=== PATIENT | male | born 1960 | race Caucasian/White ===

== ENCOUNTER 2020-05-10 21:29 | Inpatient (IN) ==
[2020-05-10] MEDS ORDERED: NORMAL SALINE 1,000 ML IV ONE (21:45)
[2020-05-10] MEDS ORDERED: HYDROmorphone HCL 1 MG/ML DISP.SYRIN IV ONE (21:50)
[2020-05-10] MEDS ORDERED: ACETAMINOPHEN 500 MG TABLET PO ONE (21:56)
--- NOTE | 2020-05-10 21:58 | ERNOTE ---
ER Male HPI Date of Service: 05/10/20 Stated Complaint: infection ER Male: other Time Seen by Provider: 05/10/20 21:31 Source: patient Exam Limitations: no limitations - Right flank pain Immunizations: IMMUNIZATION HX Immunizations Up to Date Yes History of Influenza Vaccine Yes Hx Pneumococcal Vaccination No Allergies/Adverse Reactions: Allergies gabapentin Adverse Reaction (Verified 05/10/20 21:39) Home Medications: HOME MEDICATIONS Lisinopril [Zestril] 10 mg PO DAILY 02/09/14 [Last Taken Unknown] Pravastatin Sodium [Pravachol] 20 mg PO HS 02/09/14 [Last Taken Unknown] metFORMIN HCL [Glucophage] 850 mg PO TID 02/09/14 [Last Taken Unknown] Potassium Citrate [Urocit-K] 2 tab PO BID #0 tablet.er 09/06/14 [Last Taken Unknown] Tamsulosin HCl [Flomax] 0.4 mg PO DAILY #7 cap 03/13/18 [Last Taken Unknown] HYDROcodone/ACETAMINOPHEN [Hydrocodon-Acetaminophn 10-325] 1 ea PO Q6H 05/08/20 [Last Taken Unknown] Sulfamethoxazole/Trimethoprim [Bactrim Ds] 1 tab PO BID 14 Days #7 tab 05/08/20 [Last Taken Unknown] glipiZIDE [Glipizide] 5 mg PO DAILY 05/08/20 [Last Taken Unknown] - Pain Score Pain Score #1 Pain Score: 7 - History of Present Illness Narrative: 59-year-old male diabetic seen 2 days ago here in the emergency room diagnosed with a passed kidney stone urinary tract infection since being discharged to home has been complaining of fever chills getting worse in the last 24 hours still having extreme pain in the right flank with multiple episodes of nausea and vomiting pain radiates into the groin as if he had another stone he was placed on Bactrim for the urinary tract infection and preliminary culture showed Proteus mirabilis patient states that his sugars have been running extremely h igh Date (Duration): 05/10/20 Time (Timing): 21:53 Timing: Present: getting worse Quality: Present: severe Onset Location: Present: RLQ, right flank Radiation: Present: RLQ, groin Activities at Onset: Present: none Prior Abdominal Problems: Present: other - Kidney stone Modifying Factors - (Improves): Present: analgesics Modifying Factors - (Worsens): Present: movement Associated Symptoms: Present: fever/chills, diaphoresis, nausea, vomiting, abdominal pain Prior Treatment: Present: recently seen, treated by physician Review of Systems - Review of Systems Constitutional: Present: no symptoms reported, recent illness, fever, chills, diaphoresis EYE: Present: no symptoms reported ENT: Present: no symptoms reported Respiratory: Present: no symptoms reported Cardiology: Present: no symptoms reported Gastrointestinal/Abdominal: Present: no symptoms reported, nausea, vomiting Genitourinary: Present: frequency, pain Musculoskeletal: Present: no symptoms reported Skin: Present: no symptoms reported Neurological: Present: no symptoms reported All Other Systems: All systems neg except as marked Medical History (Last Reviewed 05/10/20 @ 21:54 by Joce Lemus MD) Abnormal liver enzymes Diabetes 1.5, managed as type 2 Hypercholesteremia Hypertension Kidney stone Obesity Obstructive sleep apnea Surgical History: Surgical History (Last Reviewed 05/10/20 @ 21:54 by Joce Lemus MD) History of colonoscopy History of lithotripsy Hx of appendectomy Family History: Family History (Last Reviewed 05/10/20 @ 23:19 by Dayanara Lovett RN) Other No pertinent family history Social History: (Last Reviewed 05/10/20 @ 23:19 by Dayanara Lovett RN) Social History: adopted: No foster care: No custodial: No Marital status: lives independently: Yes current occupational status: employed Tobacco: Smoking Status: Never smoker Alcohol: alcohol intake: never Substance Use: substance use type: does not use Physical Exam - Physical Exam General Appearance: Present: wd/wn, severe distress, obese Head Exam: Present: normal inspection Eye Exam: Normal inspection: bilateral Ears, Nose, Throat: Present: normal ENT inspection, dry mucous membranes Neck: Present: normal inspection Respiratory: Present: no respiratory distress Cardiovascular/Chest: Present: tachycardia Gastrointestinal/Abdominal: Present: nontender, nondistended, soft, abnormal bowel sounds Male Genitals Exam: Present: normal genitalia Back Exam: Present: normal inspection Extremity Exam: Present: normal inspection Neurological Exam: Present: alert, oriented Skin Exam: Present: diaphoresis Lymphatic Exam: Present: no adenopathy Progress - Results and Orders Patient's Lab Results:: I have reviewed the patient's lab results. Results and Orders: Laboratory Tests 05/10/20 05/10/20 05/10/20 21:50 21:50 21:50 WBC 18.9 H D RBC 5.23 Hgb 15.1 Hct 46.1 MCV 88.1 MCH 28.9 MCHC 32.8 RDW 13.0 Plt Count 256 Neutrophils % (Manual) 86 H Band Neuts % (Manual) 8 H Lymphocytes % (Manual) 5 L Monocytes % (Manual) 1 Sodium 131 L Plasma Sodium 133 Potassium 4.5 Chloride 93 L Carbon Dioxide 22.7 L Anion Gap 19.8 H BUN 39 H Creatinine 2.31 H D Est GFR (Non-Af Amer) 31 L D BUN/Creatinine Ratio 16.9 Random Glucose 217 H Lactic Acid, Venous 3.6 H* Calcium 9.4 Calcium Adj for Albumin 9.6 Total Bilirubin 1.1 AST 32 ALT 35 Alkaline Phosphatase 162 Troponin I Less than 0.017 Total Protein 8.9 H Albumin 3.3 L Urine Color Urine Appearance Urine pH Ur Specific [place] Urine Protein Urine Glucose (UA) Urine Ketones Urine Blood Urine Nitrate Urine Bilirubin Urine Urobilinogen Ur Leukocyte Esterase Urine RBC Urine WBC Ur Epithelial Cells Urine Bacteria Urine Culture Comments 05/10/20 22:05 WBC RBC Hgb Hct MCV MCH MCHC RDW Plt Count Neutrophils % (Manual) Band Neuts % (Manual) Lymphocytes % (Manual) Monocytes % (Manual) Sodium Plasma Sodium Potassium Chloride Carbon Dioxide Anion Gap BUN Creatinine Est GFR (Non-Af Amer) BUN/Creatinine Ratio Random Glucose Lactic Acid, Venous Calcium Calcium Adj for Albumin Total Bilirubin AST ALT Alkaline Phosphatase Troponin I Total Protein Albumin Urine Color Yellow Urine Appearance Clear Urine pH 5.5 Ur Specific [place] 1.025 Urine Protein 30 H Urine Glucose (UA) >=1000 H Urine Ketones 15 Urine Blood 50 H Urine Nitrate Negative Urine Bilirubin 1 H Urine Urobilinogen Normal Ur Leukocyte Esterase Negative Urine RBC 10-25 H Urine WBC 0-5 Ur Epithelial Cells 0-5 Urine Bacteria Trace Urine Culture Comments Culture to follow - Vital Signs Patient's Vital Signs:: I have reviewed the patient's vital signs. Vital Signs: Vital Signs 05/10/20 21:35 Temperature 38.2 C H Pulse Rate 131 H Respiratory Rate 22 H Blood Pressure 133/74 Elevated temperature heart rate respiratory rate - EKG EKG #1 EKG: supraventricular tachycardia EKG read: Interp. by me EKG Comments: Sinus tachycardia with a heart rate of 121 right bundle branch block no acute changes - X-Ray X-Ray #1 X-Ray: chest Interpretation: Interp. by me X-ray Comments: Chest no acute disease - Progress/Reassessment Chief Complaint: Genitourinary Problem Plan - Plan Plan: And is to admit the patient Dr. Pitt is excepting physician diagnosis will be acute pyelonephritis and urosepsis Departure Clinical Impression: UTI (urinary tract infection), bacterial, Acute pyelonephritis - Departure Disposition: Short Term Hospital Inpatient Condition: Fair Additional Instructions: Admit to [facility] Dr. Pitt Referrals: Mary Odom MD [Primary Care Provider] -
[2020-05-10 22:01] LABS: Hematocrit 46.1 % (42.0-52.0); Hemoglobin 15.1 gm/dL (13.5-18.0); Mean Cell Volume 88.1 fl (78-100); Mean Corpuscular Hemoglobin 28.9 pg (27-31); Mean Corpuscular Hgb Conc 32.8 g/dl (32-36); Mean Platelet Volume 9.2 fl (8-11.3); Platelet Count 256 K/mm3 (150-450); Red Blood Count 5.23 M/mm3 (4.7-6.0); White Blood Count 18.9 K/mm3 (4.0-10.5)
[2020-05-10 22:13] LABS: Total Cells Counted 100
[2020-05-10 22:15] LABS: Band 8 % (0-2.0); Lymphocyte 5 % (20-51); Monocyte 1 % (0-9); Neutrophil 86 % (42-75); Neutrophil # 16.3 K/mm3 (1.3-6.0); Platelet Estimate Normal (NORMAL); RBC Morphology Normal (NORMAL)
[2020-05-10 22:18] LABS: ALT 35 U/L (19-67); AST 32 U/L (0-48); Albumin * 3.3 gm/dl (3.4-5.0); Alkaline Phosphatase * 162 U/L (50-170); Anion Gap 19.8 mmol/L (6.8-13.8); BUN/Creatinine Ratio 16.9 (9.0-21.6); Bilirubin, Total 1.1 mg/dL (0.0-1.1); Blood Urea Nitrogen 39 mg/dL (6-23); Ca. Corrected For Albumin 9.6 mg/dL (8.4-10.2); Calcium * 9.4 mg/dL (7.9-10.9); Carbon Dioxide 22.7 mmol/L (24-32.6); Chloride 93 mmol/L (97-106); Glucose * 217 mg/dL (70-110); Potassium 4.5 mmol/L (3.4-4.6); Sodium 131 mmol/L (132-142); Total Protein 8.9 gm/dL (6.2-8.2); Troponin I Less than 0.017 ng/mL (0.00-0.10)
[2020-05-10 22:21] LABS: Urine Bilirubin 1 mg/dl (NEGATIVE); Urine Blood 50 /ul (NEGATIVE); Urine Ketone 15 mg/dL (NEGATIVE); Urine Nitrite Negative (NEGATIVE); Urine Protein 30 mg/dL (NEGATIVE); Urine Specific Gravity 1.025 SP.GR. (1.005-1.030); Urine Urobilinogen Normal (NORMAL); Urine pH 5.5 pH (5.0-7.0)
[2020-05-10 22:27] LABS: Urine Appearance Clear (CLEAR); Urine Bacteria TRACE; Urine Color Yellow; Urine WBC 0-5 /hpf (0-5)
[2020-05-10] MEDS ORDERED: INSULIN REGULAR, HUMAN 100 UNITS/ML VIAL SC ONE (22:30)
[2020-05-10] MEDS ORDERED: cefTRIAXone SODIUM 1,000 MG/100 ML BAG IV ONE (22:30)
[2020-05-11] MEDS ORDERED: NORMAL SALINE 1,000 ML IV ONE (01:30)
[2020-05-11 07:11] LABS: Hematocrit 43.7 % (42.0-52.0); Hemoglobin 14.1 gm/dL (13.5-18.0); Mean Cell Volume 89.7 fl (78-100); Mean Corpuscular Hgb Conc 32.3 g/dl (32-36); Mean Platelet Volume 9.2 fl (8-11.3); Neutrophil # 12.4 K/mm3 (1.3-6.0); Neutrophil % 83.6 % (42-75.0); Platelet Count 247 K/mm3 (150-450); Red Blood Count 4.87 M/mm3 (4.7-6.0); Red Cell Distribution Width 13.1 % (11.5-14.0); White Blood Count 14.8 K/mm3 (4.0-10.5)
[2020-05-11 07:25] LABS: Albumin * 2.8 gm/dl (3.4-5.0); Anion Gap 13.7 mmol/L (6.8-13.8); Bilirubin, Total 0.6 mg/dL (0.0-1.1); Ca. Corrected For Albumin 9.5 mg/dL (8.4-10.2); Calcium * 8.9 mg/dL (7.9-10.9); Carbon Dioxide 28.6 mmol/L (24-32.6); Potassium 4.3 mmol/L (3.4-4.6); Total Protein 7.9 gm/dL (6.2-8.2)
[2020-05-11] MEDS: glipiZIDE 5 MG TABLET PO SCH (08:39)
[2020-05-11] MEDS: HYDROcodone/ACETAMINOPHEN 1 EACH TABLET PO SCH ×3 (08:39→20:39)
--- NOTE | 2020-05-11 09:55 | HP ---
Chief Complaint - Chief Complaint Date of Service: 05/11/20 Time of Service: 09:46 Chief Complaint: right flank pain, shaking chills History of Present Illness: Patient with PMHx of previous renal stones and cystoscopies with stents, DM, pulmonary fibrosis, VINCENZO on CPAP returned to the ED for the second time in a week for right flank pain. He was diagnosed with a UTI and given bactrim on the . Urine culture showed proteus mirabilis, sensitive to bactrim. He felt like the bactrim gave him chills. Food has not tasted right since he started that medication. He thinks he may have passed a renal stone recently. Yesterday, he had uncontrolled shaking and chills, and the flank pain persisted, so he came back to the ED. Workup showed hydroureter on the right, but no current urolithiasis. the hydroureter is stable, but there was some right perinephric stranding. WBC was elevated to 18.9, improved to 14.8 this morning. He has an acute renal injury, with creatinine of 2.31 on admission. Baseline appears to be around 1.2. This has improved to 2.11 this morning. GFR was 31 last night and 34 this morning. He had an elevated lactate of 3.6, improved to 1.8 with fluids. UA showed blood, protein, and glucose. ERP reported he was diaphoretic initially in the ED, but felt much better after fluids and a dose of Rocephin. He initially met sepsis criteria in the ED, but this had resolved by the time of the admission phone call. He was diagnosed with pyelonephritis and admitted for infection control and fluid administration. On my admission exam this morning, he reports feeling much better. His pain has improved, and he has not been febrile since arriving to the floor 7 hours prior. Denies dysuria, vomiting, CP, SOB or edema. Medical History (Last Reviewed 05/11/20 @ 01:47 by Felisa Quinones RN) Abnormal liver enzymes Diabetes 1.5, managed as type 2 Hypercholesteremia Hypertension Kidney stone Obesity Obstructive sleep apnea Surgical History: Surgical History (Last Reviewed 05/11/20 @ 01:47 by Felisa Quinones RN) History of colonoscopy History of lithotripsy Hx of appendectomy Family History: Family History (Last Reviewed 05/11/20 @ 01:47 by Felisa Quinones RN) Other No pertinent family history Social History: (Last Updated 05/11/20 @ 01:49 by Felisa Quinones RN) Social History: adopted: No foster care: No skilled nursing: No Marital status: lives independently: Yes household members: spouse number of children: 1 number of grandchildren: 0 current occupational status: employed current occupation: Self Employed; [employer] in [place] Highest level of school completed/degree received: some college, no degree Service: No Tobacco: Smoking Status: Never smoker Alcohol: alcohol intake: never Substance Use: substance use type: does not use Dietary Habits: diet: diabetic caffeine: Yes Type: coffee Review Of Systems (GEN) - Review of Systems Generalized/Overall Review: Present: Chills, Fever Respiratory: Absent: Shortness of Breath Cardiac: Absent: Chest Pain, Edema Abdominal: Present: Nausea, Vomiting, Abdominal Pain Genitourinary: Present: Frequency, Other - darker urine Immunizations: IMMUNIZATION HX Immunizations Up to Date Yes History of Influenza Vaccine Yes Hx Pneumococcal Vaccination No Allergies/Adverse Reactions: Allergies Allergy/AdvReac Type Severity Reaction Status Date / Time gabapentin AdvReac Verified 05/10/20 21:39 Home Medications: HOME MEDICATIONS Lisinopril [Zestril] 10 mg PO DAILY 02/09/14 [Last Taken Unknown] Pravastatin Sodium [Pravachol] 20 mg PO HS 02/09/14 [Last Taken Unknown] metFORMIN HCL [Glucophage] 850 mg PO TID 02/09/14 [Last Taken Unknown] Potassium Citrate [Urocit-K] 2 tab PO BID #0 tablet.er 09/06/14 [Last Taken Unknown] Tamsulosin HCl [Flomax] 0.4 mg PO DAILY #7 cap 03/13/18 [Last Taken Unknown] HYDROcodone/ACETAMINOPHEN [Hydrocodon-Acetaminophn 10-325] 1 ea PO Q6H 05/08/20 [Last Taken Unknown] Sulfamethoxazole/Trimethoprim [Bactrim Ds] 1 tab PO BID 14 Days #7 tab 05/08/20 [Last Taken Unknown] glipiZIDE [Glipizide] 5 mg PO DAILY 05/08/20 [Last Taken Unknown] Exam - Exam Vital Signs: Vital Signs - Last Taken Temp 36.3 C 05/11/20 06:47 Pulse 73 05/11/20 06:47 Resp 16 05/11/20 06:47 BP 127/78 05/11/20 06:47 Pulse Ox 99 05/11/20 06:47 Constitutional: Present: Alert, Cooperative, No distress, Morbidly obese Respiratory: Present: lungs clear, normal breath sounds, no respiratory distress Cardiovascular/Chest: Present: regular rate, rhythm Abdomen: Present: Normal bowel sounds, obese. Absent: CVA tenderness Extremity: Absent: lower extremity edema Eye contact: Present: cooperative, good eye contact Diagnostic Studies: Abnormal Lab Results 05/10/20 05/10/20 05/10/20 Range/Units 21:50 21:50 21:50 WBC 18.9 H D (4.0-10.5) K/mm3 Immature Gran % (Auto) (0.001-0.429) % Immature Gran # (Auto) (0.000-0.0310) K/mm3 Neutrophils % (42-75.0) % Neutrophils % (Manual) 86 H (42-75) % Band Neuts % (Manual) 8 H (0-2.0) % Lymphocytes % (20-51) % Lymphocytes % (Manual) 5 L (20-51) % Monocytes % (0.0-9) % Neutrophils # (1.3-6.0) K/mm3 Neutrophils # (Manual) 16.3 H (1.3-6.0) K/mm3 Lymphocytes # (1.5-3.5) k/mm3 Lymphocytes # (Manual) 0.9 L (1.5-3.5) k/mm3 Monocytes # (0.0-1.0) k/mm3 Sodium 131 L (132-142) mmol/L Chloride 93 L (97-106) mmol/L Carbon Dioxide 22.7 L (24-32.6) mmol/L Anion Gap 19.8 H (6.8-13.8) mmol/L BUN 39 H (6-23) mg/dL Creatinine 2.31 H D (0.4-1.4) mg/dL Est GFR (Non-Af Amer) 31 L D (60-130) mL/min Random Glucose 217 H (70-110) mg/dL Lactic Acid, Venous 3.6 H* (0.4-2.0) mmol/L Total Protein 8.9 H (6.2-8.2) gm/dL Albumin 3.3 L (3.4-5.0) gm/dl Urine Protein (NEGATIVE) mg/dL Urine Glucose (UA) (NEGATIVE) mg/dL Urine Blood (NEGATIVE) /ul Urine Bilirubin (NEGATIVE) mg/dl Urine RBC (0-5) /hpf 05/10/20 05/11/20 05/11/20 Range/Units 22:05 07:00 07:00 WBC 14.8 H D (4.0-10.5) K/mm3 Immature Gran % (Auto) 0.70 H (0.001-0.429) % Immature Gran # (Auto) 0.10 H (0.000-0.0310) K/mm3 Neutrophils % 83.6 H (42-75.0) % Neutrophils % (Manual) (42-75) % Band Neuts % (Manual) (0-2.0) % Lymphocytes % 6.2 L (20-51) % Lymphocytes % (Manual) (20-51) % Monocytes % 9.1 H (0.0-9) % Neutrophils # 12.4 H (1.3-6.0) K/mm3 Neutrophils # (Manual) (1.3-6.0) K/mm3 Lymphocytes # 0.92 L (1.5-3.5) k/mm3 Lymphocytes # (Manual) (1.5-3.5) k/mm3 Monocytes # 1.4 H (0.0-1.0) k/mm3 Sodium (132-142) mmol/L Chloride (97-106) mmol/L Carbon Dioxide (24-32.6) mmol/L Anion Gap (6.8-13.8) mmol/L BUN 38 H (6-23) mg/dL Creatinine 2.11 H (0.4-1.4) mg/dL Est GFR (Non-Af Amer) 34 L (60-130) mL/min Random Glucose 128 H D (70-110) mg/dL Lactic Acid, Venous (0.4-2.0) mmol/L Total Protein (6.2-8.2) gm/dL Albumin 2.8 L (3.4-5.0) gm/dl Urine Protein 30 H (NEGATIVE) mg/dL Urine Glucose (UA) >=1000 H (NEGATIVE) mg/dL Urine Blood 50 H (NEGATIVE) /ul Urine Bilirubin 1 H (NEGATIVE) mg/dl Urine RBC 10-25 H (0-5) /hpf Laboratory Results WBC 14.8 K/mm3 (4.0-10.5) H D 05/11/20 07:00 RBC 4.87 M/mm3 (4.7-6.0) 05/11/20 07:00 Hgb 14.1 gm/dL (13.5-18.0) 05/11/20 07:00 Hct 43.7 % (42.0-52.0) 05/11/20 07:00 MCV 89.7 fl (78-100) 05/11/20 07:00 MCH 29.0 pg (27-31) 05/11/20 07:00 MCHC 32.3 g/dl (32-36) 05/11/20 07:00 RDW 13.1 % (11.5-14.0) 05/11/20 07:00 Plt Count 247 K/mm3 (150-450) 05/11/20 07:00 MPV 9.2 fl (8-11.3) 05/11/20 07:00 Immature Gran % (Auto) 0.70 % (0.001-0.429) H 05/11/20 07:00 Immature Gran # (Auto) 0.10 K/mm3 (0.000-0.0310) H 05/11/20 07:00 Neutrophils % 83.6 % (42-75.0) H 05/11/20 07:00 Neutrophils % (Manual) 86 % (42-75) H 05/10/20 21:50 Band Neuts % (Manual) 8 % (0-2.0) H 05/10/20 21:50 Lymphocytes % 6.2 % (20-51) L 05/11/20 07:00 Lymphocytes % (Manual) 5 % (20-51) L 05/10/20 21:50 Monocytes % 9.1 % (0.0-9) H 05/11/20 07:00 Monocytes % (Manual) 1 % (0-9) 05/10/20 21:50 Eosinophils % 0.1 % (0.0-3.0) 05/11/20 07:00 Basophils % 0.3 % (0.0-1.0) 05/11/20 07:00 Nucleated RBC % 0.0 k/mm3 (0-1) 05/11/20 07:00 Neutrophils # 12.4 K/mm3 (1.3-6.0) H 05/11/20 07:00 Neutrophils # (Manual) 16.3 K/mm3 (1.3-6.0) H 05/10/20 21:50 Lymphocytes # 0.92 k/mm3 (1.5-3.5) L 05/11/20 07:00 Lymphocytes # (Manual) 0.9 k/mm3 (1.5-3.5) L 05/10/20 21:50 Monocytes # 1.4 k/mm3 (0.0-1.0) H 05/11/20 07:00 Monocytes # (Manual) 0.2 k/mm3 (0.0-1.0) 05/10/20 21:50 Eosinophils # 0.0 k/mm3 (0.0-0.7) 05/11/20 07:00 Absolute Basophils 0.0 k/mm3 (0.0-0.1) 05/11/20 07:00 Platelet Estimate Normal (NORMAL) 05/10/20 21:50 RBC Morphology Normal (NORMAL) 05/10/20 21:50 Sodium 136 mmol/L (132-142) 05/11/20 07:00 Plasma Sodium 136 mmol/L (130-142) 05/11/20 07:00 Potassium 4.3 mmol/L (3.4-4.6) 05/11/20 07:00 Chloride 98 mmol/L (97-106) 05/11/20 07:00 Carbon Dioxide 28.6 mmol/L (24-32.6) 05/11/20 07:00 Anion Gap 13.7 mmol/L (6.8-13.8) 05/11/20 07:00 BUN 38 mg/dL (6-23) H 05/11/20 07:00 Creatinine 2.11 mg/dL (0.4-1.4) H 05/11/20 07:00 Est GFR (Non-Af Amer) 34 mL/min (60-130) L 05/11/20 07:00 BUN/Creatinine Ratio 18.0 (9.0-21.6) 05/11/20 07:00 Random Glucose 128 mg/dL (70-110) H D 05/11/20 07:00 Lactic Acid, Venous 1.8 mmol/L (0.4-2.0) 05/11/20 00:45 Calcium 8.9 mg/dL (7.9-10.9) 05/11/20 07:00 Calcium Adj for Albumin 9.5 mg/dL (8.4-10.2) 05/11/20 07:00 Total Bilirubin 0.6 mg/dL (0.0-1.1) 05/11/20 07:00 AST 31 U/L (0-48) 05/11/20 07:00 ALT 36 U/L (19-67) 05/11/20 07:00 Alkaline Phosphatase 122 U/L (50-170) 05/11/20 07:00 Troponin I Less than 0.017 ng/mL (0.00-0.10) 05/10/20 21:50 Total Protein 7.9 gm/dL (6.2-8.2) 05/11/20 07:00 Albumin 2.8 gm/dl (3.4-5.0) L 05/11/20 07:00 Urine Color Yellow 05/10/20 22:05 Urine Appearance Clear (CLEAR) 05/10/20 22:05 Urine pH 5.5 pH (5.0-7.0) 05/10/20 22:05 Ur Specific [place] 1.025 SP.GR. (1.005-1.030) 05/10/20 22:05 Urine Protein 30 mg/dL (NEGATIVE) H 05/10/20 22:05 Urine Glucose (UA) >=1000 mg/dL (NEGATIVE) H 05/10/20 22:05 Urine Ketones 15 mg/dL (NEGATIVE) 05/10/20 22:05 Urine Blood 50 /ul (NEGATIVE) H 05/10/20 22:05 Urine Nitrate Negative (NEGATIVE) 05/10/20 22:05 Urine Bilirubin 1 mg/dl (NEGATIVE) H 05/10/20 22:05 Urine Urobilinogen Normal EU/dl (NORMAL) 05/10/20 22:05 Ur Leukocyte Esterase Negative /ul (NEGATIVE) 05/10/20 22:05 Urine RBC 10-25 /hpf (0-5) H 05/10/20 22:05 Urine WBC 0-5 /hpf (0-5) 05/10/20 22:05 Ur Epithelial Cells 0-5 /hpf (0-5) 05/10/20 22:05 Urine Bacteria Trace (NONE) 05/10/20 22:05 Urine Culture Comments Culture to follow 05/10/20 22:05 SARS-CoV-2 (PCR) Not detected (NotDetected) 05/10/20 23:29 Assessment/Plan - Narrative Narrative: He initially met sepsis criteria in the ED. By the time the ERP called for admission, he reportedly felt much better, and he no longer met sepsis criteria after being given a dose of Rocephin and one NS bolus. May have been due to obstructive renal stone that has passed prior to this admission. He is hoping to go home this afternoon, and will be able to do so if he remains fever free. - Assessment/Plan (1) Acute pyelonephritis Assessment: CT report includes "STABLE PERSISTENT RIGHT-SIDED HYDRONEPHROSIS AND HYDROURETER WITH PERINEPHRIC AND PERIURETERAL STRANDING. NO VISIBLE CALCIFIED STONES. FINDINGS CONSISTENT WITH EITHER RECENTLY PASSED STONE, RADIOLUCENT STONE AND/OR PYELONEPHRITIS. NO LEFT-SIDED STONES OR HYDRONEPHROSIS. He has a history of renal stones, but hasn't needed to see his urologist in a couple of years. The CT findings suggest recently passed stone, with which he agrees. His pain has much improved since admission. I suspect he had a ureteral stone that led to the pyelonephritis, which has passed prior to this admission. He was given rocephin and fluids, and feels much better. His vitals are now normal and labs are improving. He is no longer febrile, tachycardic, or tachypneic. Will change to cefdinir. he feels like he the bactrim made him a bit nauseated and changed the taste of foods, though the proteus was susceptible to it. If he was experiencing side effects from the bactrim, he may not have taken it regularly in the 3 days since his ED visit. Likely DC home later today, to follow up with urology and myself in the next couple of weeks. Problem: Acute (2) History of renal stone Problem: Chronic (3) Acute renal injury Assessment: BUN: creatinine ratio is normal, but they are both elevated. He may have an SHANA from reduced hydration, or from ureteral obstruction from recently passed stone. Improving with fluids. Creatinine of 2.3 last night, and 2.1 this morning. GFR of 31 last night, 34 this morning. His baseline creatinine appears to be around 1.2 and baseline GFR appears to be in the 60's. Problem: Acute (4) Diabetes mellitus Assessment: He was given 4U insulin in the ED for glucose of 217. Glucose has been in the 100's since admission. Will continue home glipizide. He thinks his most recent A1C was in the 8 range. Problem: Chronic (5) Morbid obesity Problem: Chronic (6) Pulmonary fibrosis Problem: Chronic (7) Sepsis Problem: Resolved
[2020-05-11] MEDS: NORMAL SALINE 1,000 ML IV PRN ×2 (10:00→15:55)
[2020-05-11] MEDS: LISINOPRIL 10 MG TABLET PO SCH (14:44)
[2020-05-11] MEDS ORDERED: ACETAMINOPHEN 325 MG TABLET PO PRN (17:21)
[2020-05-11] MEDS: TAMSULOSIN HCL 0.4 MG CAP.SR.24H PO SCH (17:44)
[2020-05-11] MEDS ORDERED: CEFDINIR 300 MG CAPSULE PO SCH (21:00)
[2020-05-12] MEDS: HYDROcodone/ACETAMINOPHEN 1 EACH TABLET PO SCH ×4 (03:31→20:31)
[2020-05-12 05:54] LABS: Hemoglobin 13.7 gm/dL (13.5-18.0); Mean Cell Volume 90.1 fl (78-100); Mean Corpuscular Hemoglobin 28.7 pg (27-31); Mean Corpuscular Hgb Conc 31.9 g/dl (32-36); Mean Platelet Volume 9.5 fl (8-11.3); Platelet Count 233 K/mm3 (150-450); Red Blood Count 4.77 M/mm3 (4.7-6.0); Red Cell Distribution Width 13.2 % (11.5-14.0); White Blood Count 19.1 K/mm3 (4.0-10.5)
[2020-05-12 05:57] LABS: Total Cells Counted 100
[2020-05-12 06:07] LABS: Albumin * 2.7 gm/dl (3.4-5.0); Anion Gap 18.8 mmol/L (6.8-13.8); Bilirubin, Total 0.7 mg/dL (0.0-1.1); Calcium * 8.3 mg/dL (7.9-10.9); Carbon Dioxide 19.9 mmol/L (24-32.6); Potassium 4.7 mmol/L (3.4-4.6); Total Protein 7.5 gm/dL (6.2-8.2)
[2020-05-12 06:45] LABS: Atypical (Reactive) Lymph 1 % (0-2); Band 8 % (0-2.0); Lymphocyte 7 % (20-51); Monocyte 9 % (0-9); Neutrophil 75 % (42-75); Neutrophil # 14.3 K/mm3 (1.3-6.0)
[2020-05-12 06:46] LABS: Platelet Estimate Normal (NORMAL); RBC Morphology Normal (NORMAL); Toxic Granulation 1+
[2020-05-12] MEDS: glipiZIDE 5 MG TABLET PO SCH (08:07)
[2020-05-12] MEDS: LISINOPRIL 10 MG TABLET PO SCH (08:07)
[2020-05-12] MEDS ORDERED: LEVOFLOXACIN IN DEXTROSE 5 % 750 MG/150 ML BAG IV SCH (12:30)
--- NOTE | 2020-05-12 12:47 | PN ---
Subjective - Date and Time Seen Date: 05/12/20 Time: 12:41 Subjective Narrative: I still have chills, burning in my chest and sometimes feel foggy headed. Objective Objective Narrative: 59-year-old male admitted for acute pyelonephritis, acute kidney injury, and nephrolithiasis was evaluated at bedside this morning was found to be afebrile and in no acute distress. This morning patient reports feeling somewhat better, however he continues to have chills and "shakes ". I was alerted in the middle the night that the patient was confused and complained of burning in his chest. Labs this morning also revealed a worsening of his leukocytosis after being treated with ceftriaxone for more than 24 hours, this would indicate a poor response to the current IV antibiotics therefore we will switch to Levaquin. His right flank pain has improved and he is no longer tender on costovertebral angle percussion, however he continues to report not feeling well. Therefore we will make this patient inpatient for additional days of treatment with antibiotic therapy and IV hydration. He has been completely afebrile for more than 24 hours. - Review of Systems Generalized/Overall Review: Reports: Chills EENTM: Reports: No Symptoms Reported Respiratory: Reports: No Symptoms Reported Cardiac: Reports: No Symptoms Reported Abdominal: Reports: No Symptoms Reported Genitourinary Symptoms: Reports: No Symptoms Reported Musculoskeletal Complaints: Reports: No Symptoms Reported Neurological: Reports: No Symptoms Reported Skin: Reports: No Symptoms Reported Endocrine: Reports: No Symptoms Reported - Vitals Vitals: Last Vital Signs Temp 36.1 C 05/12/20 10:12 Pulse 80 05/12/20 10:12 Resp 12 05/12/20 10:12 BP 146/77 H 05/12/20 10:12 Pulse Ox 99 05/12/20 10:12 - Abnormal Lab Findings Abnormal Lab Findings: Abnormal Lab Results 05/12/20 05/12/20 Range/Units 05:50 05:50 WBC 19.1 H D (4.0-10.5) K/mm3 MCHC 31.9 L (32-36) g/dl Band Neuts % (Manual) 8 H (0-2.0) % Lymphocytes % (Manual) 7 L (20-51) % Neutrophils # (Manual) 14.3 H (1.3-6.0) K/mm3 Lymphocytes # (Manual) 1.3 L (1.5-3.5) k/mm3 Monocytes # (Manual) 1.7 H (0.0-1.0) k/mm3 Sodium 129 L (132-142) mmol/L Potassium 4.7 H (3.4-4.6) mmol/L Chloride 95 L (97-106) mmol/L Carbon Dioxide 19.9 L (24-32.6) mmol/L Anion Gap 18.8 H (6.8-13.8) mmol/L BUN 36 H (6-23) mg/dL Creatinine 1.89 H (0.4-1.4) mg/dL Est GFR (Non-Af Amer) 39 L (60-130) mL/min Random Glucose 147 H (70-110) mg/dL Albumin 2.7 L (3.4-5.0) gm/dl - Exam Constitutional: Present: Alert, Oriented x3, Cooperative, Well developed, No distress, Morbidly obese ENT Exam: Present: normal ENT inspection, hearing grossly normal Neck: Present: non-tender, full range of motion, supple, normal inspection, trachea midline Breasts: Present: Exam deferred, Nontender Respiratory: Present: chest non-tender, lungs clear, normal breath sounds, no respiratory distress, no accessory muscle use Cardiovascular/Chest: Present: normal peripheral pulses, regular rate, rhythm, n o chest tenderness, no edema, no gallop, no JVD, no murmur, no rub Abdomen: Present: Normal bowel sounds, soft, nontender, nondistended, no rebound tenderness, no hepatospenomegaly, no masses /Rectal: Present: Exam deferred Extremity: Present: normal range of motion, non-tender, normal inspection, no pedal edema, no calf tenderness, normal capillary refill Skin Exam: Present: normal color, warm/dry, no cyanosis Lymphatic: Present: no adenopathy Neurologic: Present: grappler II-XII nml as tested, no motor/sensory deficits, alert, normal mood/affect, oriented x 3 Appearance: Present: appropriate appearance, appropriate insight, neat, no memory impairment Eye contact: Present: cooperative, good eye contact, normal speech Thoughts: Present: normal thought pattern, no apparent hallucination Assessment/Plan Plan Narrative: We will reevaluate patient in the morning for response to new IV antibiotic regimen and treat him accordingly. - Problems/Diagnosis (1) Renal colic on right side Problem: Acute (2) UTI (urinary tract infection), bacterial Problem: Acute (3) Acute pyelonephritis Problem: Acute (4) History of renal stone Problem: Chronic (5) Diabetes mellitus Problem: Chronic (6) Morbid obesity Problem: Chronic (7) Pulmonary fibrosis Problem: Chronic (8) Acute renal injury Problem: Acute
[2020-05-12] MEDS: TAMSULOSIN HCL 0.4 MG CAP.SR.24H PO SCH (16:59)
[2020-05-12] MEDS ORDERED: SIMVASTATIN 10 MG TABLET PO SCH (21:00)
[2020-05-12] MEDS ORDERED: CEFDINIR 300 MG CAPSULE PO SCH (21:00)
[2020-05-13] MEDS: HYDROcodone/ACETAMINOPHEN 1 EACH TABLET PO SCH ×2 (03:05→09:11)
[2020-05-13 06:43] LABS: Hematocrit 43.9 % (42.0-52.0); Hemoglobin 14.1 gm/dL (13.5-18.0); Mean Cell Volume 89.2 fl (78-100); Mean Corpuscular Hemoglobin 28.7 pg (27-31); Mean Corpuscular Hgb Conc 32.1 g/dl (32-36); Mean Platelet Volume 9.3 fl (8-11.3); Platelet Count 234 K/mm3 (150-450); Red Blood Count 4.92 M/mm3 (4.7-6.0); Red Cell Distribution Width 13.2 % (11.5-14.0); White Blood Count 14.8 K/mm3 (4.0-10.5)
[2020-05-13 06:49] LABS: Total Cells Counted 100
[2020-05-13 07:01] LABS: Albumin * 2.6 gm/dl (3.4-5.0); Anion Gap 12.7 mmol/L (6.8-13.8); BUN/Creatinine Ratio 19.5 (9.0-21.6); Bilirubin, Total 0.5 mg/dL (0.0-1.1); Ca. Corrected For Albumin 9.7 mg/dL (8.4-10.2); Calcium * 8.9 mg/dL (7.9-10.9); Carbon Dioxide 24.5 mmol/L (24-32.6); Potassium 4.2 mmol/L (3.4-4.6); Total Protein 7.7 gm/dL (6.2-8.2)
[2020-05-13 07:32] LABS: Atypical (Reactive) Lymph 4 % (0-2); Band 4 % (0-2.0); Eosinophil 1 % (0-3); Lymphocyte 4 % (20-51); Monocyte 12 % (0-9); Neutrophil 75 % (42-75); Neutrophil # 11.1 K/mm3 (1.3-6.0); Platelet Estimate Normal (NORMAL); RBC Morphology Normal (NORMAL)
[2020-05-13] MEDS: LISINOPRIL 10 MG TABLET PO SCH (09:11)
[2020-05-13] MEDS: glipiZIDE 5 MG TABLET PO SCH (09:12)
--- NOTE | 2020-05-13 11:40 | DS ---
(1) Renal colic on right side Problem: Resolved (2) UTI (urinary tract infection), bacterial Problem: Acute (3) Acute pyelonephritis Problem: Acute (4) History of renal stone Problem: Chronic (5) Diabetes mellitus Problem: Chronic (6) Morbid obesity Problem: Chronic (7) Pulmonary fibrosis Problem: Chronic (8) Acute renal injury Problem: Acute Date of Discharge:: 05/13/20 Hospital Course: The 59-year-old male admitted for a diagnosis of acute pyelonephritis and SHANA on CKD was evaluated at bedside this morning was found to be afebrile and in no acute distress. Patient was in really good spirits this morning reports feeling much much better ever since we switch his antibiotics. He denies any recurrence of chills or fever and says now he just will go home. The patient's antibiotics were switched yesterday to Levaquin which he tolerated really well and responded very well to. Therefore we will discharge patient with additional days of p.o. Levaquin to continue treating his infection. Procedures Performed: none Results and Findings: Pending Mircobiology Results 05/10/20 22:10 Blood Blood Culture - Preliminary NO GROWTH AFTER 48 HOURS 05/10/20 21:50 Blood Blood Culture - Preliminary NO GROWTH AFTER 48 HOURS Lab Pending Results 05/10/20 21:50: WBC 18.9 H D, RBC 5.23, Hgb 15.1, Hct 46.1, MCV 88.1, MCH 28.9, MCHC 32.8, RDW 13.0, Plt Count 256, MPV 9.2, Neutrophils % (Manual) 86 H, Band Neuts % (Manual) 8 H, Lymphocytes % (Manual) 5 L, Monocytes % (Manual) 1, Neutrophils # (Manual) 16.3 H, Lymphocytes # (Manual) 0.9 L, Monocytes # (Manual) 0.2, Platelet Estimate Normal, RBC Morphology Normal 05/10/20 21:50: Sodium 131 L, Plasma Sodium 133, Potassium 4.5, Chloride 93 L, Carbon Dioxide 22.7 L, Anion Gap 19.8 H, BUN 39 H, Creatinine 2.31 H D, Est GFR (Non-Af Amer) 31 L D, BUN/Creatinine Ratio 16.9, Random Glucose 217 H, Calcium 9.4, Calcium Adj for Albumin 9.6, Total Bilirubin 1.1, AST 32, ALT 35, Alkaline Phosphatase 162, Troponin I Less than 0.017, Total Protein 8.9 H, Albumin 3.3 L 05/10/20 21:50: Lactic Acid, Venous 3.6 H* 05/10/20 22:05: Urine Color Yellow, Urine Appearance Clear, Urine pH 5.5, Ur Specific [place] 1.025, Urine Protein 30 H, Urine Glucose (UA) >=1000 H, Urine Ketones 15, Urine Blood 50 H, Urine Nitrate Negative, Urine Bilirubin 1 H, Urine Urobilinogen Normal, Ur Leukocyte Esterase Negative, Urine RBC 10-25 H, Urine WBC 0-5, Ur Epithelial Cells 0-5, Urine Bacteria Trace, Urine Culture Comments Culture to follow 05/10/20 23:29: SARS-CoV-2 (PCR) Not detected 05/11/20 00:45: Lactic Acid, Venous 1.8 05/11/20 07:00: WBC 14.8 H D, RBC 4.87, Hgb 14.1, Hct 43.7, MCV 89.7, MCH 29.0, MCHC 32.3, RDW 13.1, Plt Count 247, MPV 9.2, Immature Gran % (Auto) 0.70 H, Immature Gran # (Auto) 0.10 H, Neutrophils % 83.6 H, Lymphocytes % 6.2 L, Monocytes % 9.1 H, Eosinophils % 0.1, Basophils % 0.3, Nucleated RBC % 0.0, Neutrophils # 12.4 H, Lymphocytes # 0.92 L, Monocytes # 1.4 H, Eosinophils # 0.0, Absolute Basophils 0.0 05/11/20 07:00: Sodium 136, Plasma Sodium 136, Potassium 4.3, Chloride 98, Carbon Dioxide 28.6, Anion Gap 13.7, BUN 38 H, Creatinine 2.11 H, Est GFR (Non- Af Amer) 34 L, BUN/Creatinine Ratio 18.0, Random Glucose 128 H D, Calcium 8.9, Calcium Adj for Albumin 9.5, Total Bilirubin 0.6, AST 31, ALT 36, Alkaline Phosphatase 122, Total Protein 7.9, Albumin 2.8 L 05/12/20 05:50: WBC 19.1 H D, RBC 4.77, Hgb 13.7, Hct 43.0, MCV 90.1, MCH 28.7, MCHC 31.9 L, RDW 13.2, Plt Count 233, MPV 9.5, Neutrophils % (Manual) 75, Band Neuts % (Manual) 8 H, Lymphocytes % (Manual) 7 L, Monocytes % (Manual) 9, Neutrophils # (Manual) 14.3 H, Lymphocytes # (Manual) 1.3 L, Monocytes # (Manual) 1.7 H, Atypic/Reactive Lymphs 1, Toxic Granulation 1+, Platelet Estimate Normal, RBC Morphology Normal 05/12/20 05:50: Sodium 129 L, Plasma Sodium 130, Potassium 4.7 H, Chloride 95 L, Carbon Dioxide 19.9 L, Anion Gap 18.8 H, BUN 36 H, Creatinine 1.89 H, Est GFR (Non-Af Amer) 39 L, BUN/Creatinine Ratio 19.0, Random Glucose 147 H, Calcium 8.3, Calcium Adj for Albumin 9.0, Total Bilirubin 0.7, AST 45, ALT 47, Alkaline Phosphatase 149, Total Protein 7.5, Albumin 2.7 L 05/13/20 06:29: WBC 14.8 H D, RBC 4.92, Hgb 14.1, Hct 43.9, MCV 89.2, MCH 28.7, MCHC 32.1, RDW 13.2, Plt Count 234, MPV 9.3, Neutrophils % (Manual) 75, Band Neuts % (Manual) 4 H, Lymphocytes % (Manual) 4 L, Monocytes % (Manual) 12 H, Eosinophils % (Manual) 1, Neutrophils # (Manual) 11.1 H, Lymphocytes # (Manual) 0.6 L, Monocytes # (Manual) 1.8 H, Eosinophils # (Manual) 0.1, Atypic/Reactive Lymphs 4 H, Platelet Estimate Normal, RBC Morphology Normal 05/13/20 06:29: Sodium 129 L, Plasma Sodium 130, Potassium 4.2, Chloride 96 L, Carbon Dioxide 24.5, Anion Gap 12.7, BUN 33 H, Creatinine 1.69 H, Est GFR (Non- Af Amer) 44 L, BUN/Creatinine Ratio 19.5, Random Glucose 168 H, Calcium 8.9, Calcium Adj for Albumin 9.7, Total Bilirubin 0.5, AST 30, ALT 42, Alkaline Phosphatase 134, Total Protein 7.7, Albumin 2.6 L Discharge Location: Home Disposition: Home self-care Condition: Fair Face to Face Encounter completed per CMS Guidelines: No Discharge Activity: Activity as tolerated Discharge Diet: General/regular food Referrals: Joy Pitt DO [Staff Physician] - Additional Patient Instructions (free text): Follow up with . Prescriptions (Any new or edited meds): Levofloxacin [Levaquin] 750 mg PO DAILY 5 Days #5 tab Transmission Status: Pending to [id number] Complete Home Medications List: Complete Home Medication List: Lisinopril [Zestril] 10 mg PO DAILY 02/09/14 Pravastatin Sodium [Pravachol] 20 mg PO HS 02/09/14 metFORMIN HCL [Glucophage] 850 mg PO TID 02/09/14 Potassium Citrate [Urocit-K] 2 tab PO BID #0 tablet.er 09/06/14 Tamsulosin HCl [Flomax] 0.4 mg PO DAILY #7 cap 03/13/18 HYDROcodone/ACETAMINOPHEN [Hydrocodone-Acetamin 10-325 mg] 1 ea PO Q6H 05/08/20 glipiZIDE [Glipizide] 5 mg PO DAILY 05/08/20 Levofloxacin [Levaquin] 750 mg PO DAILY 5 Days #5 tab 05/13/20 Forms: Patient Portal Registration
[2020-05-13 12:25] VITALS: BP 129/64
== END 2020-05-13 12:23 | disposition home or self-care (01) | DRG 690 ==
LOC: MS 21:29 → ER 21:29 → MS 05-11 01:29
PROVIDERS: ADMIT Family Medicine; ATTEND Family Medicine
DX: N39.0 Urinary tract infection, site not specified; B96.89 Other specified bacterial agents as the cause of diseases classified elsewhere; N10 Acute pyelonephritis; N17.9 Acute kidney failure, unspecified; E66.01 Morbid (severe) obesity due to excess calories; Z79.84 Long term (current) use of oral hypoglycemic drugs; I10 Essential (primary) hypertension; G47.33 Obstructive sleep apnea (adult) (pediatric); E11.9 Type 2 diabetes mellitus without complications; Z87.442 Personal history of urinary calculi; J84.10 Pulmonary fibrosis, unspecified; I45.10 Unspecified right bundle-branch block; Z68.41 Body mass index [BMI] 40.0-44.9, adult